=== PATIENT | female | born 1970 | race Caucasian/White ===

== ENCOUNTER 2023-06-17 17:17 | Emergency (ER) | payer MEDICARE, OTHER ==
[~2023-06-17] VITALS: Ht 160 cm; Wt 72.6 kg
[2023-06-17] MEDS ORDERED: LORAZEPAM 0.5 MG TABLET PO ONE (18:30)
[2023-06-17] MEDS ORDERED: IBUP-1955 PO (20:56)
[2023-06-17 22:21] VITALS: BP 165/81; TEMP 98.1; O2SAT 100
== END 2023-06-17 21:30 | disposition home or self-care (01) ==
LOC: ER 17:25
DX: S20.211A Contusion of right front wall of thorax, initial encounter (principal); R07.89 Other chest pain; I10 Essential (primary) hypertension; V89.2XXA Person injured in unspecified motor-vehicle accident, traffic, initial encounter; Y93.89 Activity, other specified; Y92.89 Other specified places as the place of occurrence of the external cause; Y99.8 Other external cause status
CPT/HCPCS: 36415; 71045-TC; 84484-TC